=== PATIENT | male | born 1980 | race Caucasian/White ===

== ENCOUNTER 2017-09-27 00:22 | Emergency (ER) | payer BC, OTHER ==
[~2017-09-27] VITALS: Ht 182.9 cm; Wt 81.6 kg
[2017-09-27] MEDS ORDERED: LIDOCAINE 1% INJ 20 ML (XYLOCAINE) VIAL INJ ONE (02:00)
[2017-09-27] MEDS ORDERED: LIDOCAINE 2% VISCOUS 15 ML UDC PO ONE (02:00)
[2017-09-27] MEDS ORDERED: TRIM/SULFAMETH 160/800 (SEPTRA DS) TAB PO ONE (02:45)
[2017-09-27] MEDS ORDERED: metroNIDAZOLE 500 MG (FLAGYL) TAB ONE (02:49)
[2017-09-27] MEDS ORDERED: METR500T PO (02:53)
[2017-09-27] MEDS ORDERED: SULF1TAB35 PO (02:53)
[2017-09-27] MEDS ORDERED: DOCU-143 PO (02:53)
--- NOTE | 2017-09-27 02:53 | ED GI ---
General Chief Complaint: Rect Problems Stated Complaint: POSS HEMORROIDS Nursing Triage Note: PT TO ED 7 W/ C/O RECTAL PAIN. PT REPORTS HE HAD SIMILAR PAIN X2-3 WKS AGO ET TREATED HIMSELF W/ OTC HEMORRHOID MEDICATIONS. REPORTS PAIN WORSE TODAY. Sepsis Screen: No Definite Risk Source of Information: Patient Exam Limitations: No Limitations History of Present Illness Time Seen By Provider: 01:37 Initial Comments This 36-year-old gentleman presents to emergency room with rectal pain. He had an episode about 2 weeks ago that improved after using hemorrhoid cream. However, pain worsened again about 2 days ago. He has a lump near the anus that he presumed was a hemorrhoid. This most recent episode is not improving with preparation H. He denies any anal foreign bodies or trauma. He does use equipment at work that causes him to balance on his seat. There has been no drainage or bleeding that he can appreciate. Allergies and Home Medications Allergies Coded Allergies: No Known Drug Allergies (Unverified , 09/27/17) Home Medications Docusate Sodium 100 Mg Capsule, 100 MG PO BID, #14 Prescribed by: HYUN MAYFIELD on 09/27/17 0253 Metronidazole 500 Mg Tablet, 500 MG PO BID, #14 Prescribed by: HYUN MAYFIELD on 09/27/17 0253 Sulfamethoxazole/Trimethoprim 1 Each Tablet, 1 EACH PO BID, #14 Prescribed by: HYUN MAYFIELD on 09/27/17 0253 Review of Systems Constitutional: no symptoms reported EENTM: No Symptoms Reported Respiratory: No Symptoms Reported Cardiovascular: No Symptoms Reported Gastrointestinal: See HPI Genitourinary: No Symptoms Reported Musculoskeletal: no symptoms reported Skin: see HPI Psychiatric/Neurological: No Symptoms Reported Endocrine: No Symptoms Reported Hematologic/Lymphatic: No Symptoms Reported Past [place]-Ptzscx-Ussstp Hx Patient Social History Alcohol Use: Denies Use Recreational Drug Use: No Smoking Status: Never a Smoker Recent Foreign Travel: No Contact w/Someone Who Travel: No Recent Infectious Disease Expo: No Recent Hopitalizations: No Physical Abuse: No Sexual Abuse: No Mistreated: No Fear: No Surgeries History of Surgeries: Yes (COLONOSCOPY) Respiratory History of Respiratory Disorde: No Cardiovascular History of Cardiac Disorders: No Neurological History of Neurological Disord: No Reproductive System Hx Reproductive Disorders: No Genitourinary History of Genitourinary Disor: No Gastrointestinal History of Gastrointestinal Di: Yes (IBS) Gastrointestinal Disorders: Chronic Diarrhea Endocrine History of Endocrine Disorders: No HEENT History of HEENT Disorders: No Cancer History of Cancer: No Psychosocial History of Psychiatric Problem: No Suicide Risk Score: 0 Integumentary History of Skin or Integumenta: No Family Medical History Significant Family History: GI Disease (IBS) Physical Exam Vital Signs VS - Last 72 Hours, by Label 09/27/17 09/27/17 00:34 02:58 Temp 98.0 Pulse 78 83 Resp 18 20 B/P (MAP) 143/92 Pulse Ox 98 98 O2 Delivery Room Air Room Air Capillary Refill : Less Than 3 Seconds General Appearance: no apparent distress HEENT: normal ENT inspection Respiratory: lungs clear, normal breath sounds, no respiratory distress Cardiovascular: regular rate, rhythm, no edema, no murmur Gastrointestinal: normal bowel sounds, non tender, soft Rectal: normal rectal tone, other (there is a fluctuant mass just above the anus suspicious for abscess. 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 The skin was then cleaned with alcohol and approximately 2 mL of one percent lidocaine was injected for local anesthesia. Betadine prep was applied. A superficial incision was then made over the fluctuant area taking care to avoid deeper structures or approaching too close to the anal opening. Thin serosanguineous and slightly purulent fluid was expressed. This may have represented either a small abscess and/or hemorrhoid diluted by the lidocaine injection. Patient reported feeling relief with the procedure. Progress/Results/Core Measures Results/Orders My Orders Orders - HYUN CHOPRA MD Lidocaine 2% Viscous 15 Ml (Xylocaine Vi (09/27/17 02:00) Lidocaine 1% Injection (Xylocaine 1% Inj (09/27/17 02:00) Sulfamethoxazole/Trimet Ds Tab (Bactrim (09/27/17 02:45) Metronidazole Tablet (Flagyl Tablet) (09/27/17 03:00) Metronidazole Tablet (Flagyl Tablet) (09/27/17 02:49) Vital Signs/I&O Vital Sign - Last 12Hours 09/27/17 09/27/17 00:34 02:58 Temp 98.0 Pulse 78 83 Resp 18 20 B/P (MAP) 143/92 Pulse Ox 98 98 O2 Delivery Room Air Room Air Blood Pressure Mean: 109 Progress Note : Progress Note The area of fullness and fluctuance had the superior aspect of the perianal area was suspicious for either thrombosing hemorrhoid or small abscess. I discussed options with the patient. He elected for incision and drainage. Topical anesthesia with viscous lidocaine was followed by lidocaine injection. Slightly purulent serosanguineous thin fluid expressed from the incision. This may have represented a small abscess diluted by the lidocaine. Patient was given a dose of Bactrim and Flagyl prior to dismissal. Departure Impression Impression: Primary Impression: Perianal abscess Disposition: HOME, SELF-CARE Condition: Improved Departure-Patient Inst. Decision time for Depature: 02:35 Referrals: NO,LOCAL PHYSICIAN (PCP/Family) Primary Care Physician Patient Instructions: Anal Abscess and Fistula Add. Discharge Instructions: Follow-up with your primary care provider soon as possible. You may continue using Preparation H if necessary. You may take ibuprofen up to 600 mg every 6 hours as needed for pain. You may also take Tylenol (acetaminophen) up to 1000 mg every 6 hours as needed for additional pain relief. Complete your antibiotics as prescribed. Return to care program develop worsening symptoms. Take a stool softener such as Colace twice daily for the next several days to keep your school soft. Sitting in a warm soapy bath for 15-30 minutes twice daily for the next few days should help soothe your wound and speed recovery as well. All discharge instructions reviewed with patient and/or family. Voiced understanding. Scripts Docusate Sodium (Colace) 100 Mg Capsule 100 MG PO BID, #14 CAP Prov: HYUN CHOPRA MD 09/27/17 Metronidazole (Flagyl) 500 Mg Tablet 500 MG PO BID, #14 TAB Prov: HYUN CHOPRA MD 09/27/17 Sulfamethoxazole/Trimethoprim (Bactrim Ds Tablet) 1 Each Tablet 1 EACH PO BID, #14 TAB Prov: HYUN CHOPRA MD 09/27/17 HYUN CHOPRA MD Sep 27, 2017 02:53
[2017-09-27 02:58] VITALS: BP 145/76
[2017-09-27] MEDS ORDERED: metroNIDAZOLE 500 MG (FLAGYL) TAB PO ONE (03:00)
== END 2017-09-27 02:58 | disposition home or self-care (01) ==
LOC: ER 00:30
DX: K61.0 Anal abscess (principal); K58.9 Irritable bowel syndrome, unspecified